=== PATIENT | female | born 1950 ===

== ENCOUNTER 2017-09-10 12:42 | Emergency (ER) | payer BC, MEDICARE ==
[2017-09-10 13:50] VITALS: BP 138/68
--- NOTE | 2017-09-10 13:59 | UC ---
Lower Extremity/Ankle HPI - HPI Summary HPI Summary: Patient fell down one stair and twisted her right ankle has pain and swelling in her lateral ankle - History of Current Complaint Chief Complaint: UCLowerExtremity Stated Complaint: FALL RIGHT ANKLE COMPLAINT Time Seen by Provider: 09/10/17 13:37 Hx Obtained From: Patient ?: No Onset/Duration: Sudden Onset Severity Initially: Mild Severity Currently: Mild Pain Intensity: 2 Pain Scale Used: 0-10 Numeric Aggravating Factor(s): Standing, Ambulation Alleviating Factor(s): Rest, Elevation, Ice, OTC Meds Able to Bear Weight: Yes - with discomfort - Allergies/Home Medications Allergies/Adverse Reactions: Allergies Allergy/AdvReac Type Severity Reaction Status Date / Time No Known Allergies Allergy Verified 09/10/17 13:42 Home Medications: Home Medications Citalopram TAB* [CeleXA TAB*] 20 mg PO DAILY 09/10/17 [History Confirmed ] Donepezil TAB* [Aricept 5 MG TAB*] 10 mg PO DAILY 09/10/17 [History Confirmed ] Ibuprofen TAB* [Advil TAB*] 200 mg PO Q6H PRN 09/10/17 [History Confirmed ] Mirtazapine TAB* [Remeron TAB*] 15 mg PO BEDTIME 09/10/17 [History Confirmed ] PMH/Surg Hx/FS Hx/Imm Hx Previously Healthy: No GI/ History: Gastroesophageal Reflux Neurological History: Dementia Psychological History: Depression, Other - Insomnia Other Psychological History: insomnia - Surgical History Surgery Procedure, Year, and Place: Pacemaker implant. gall bladder - Family History Known Family History: Positive: None - Social History Occupation: Retired Lives: With Family Alcohol Use: Occasionally Substance Use Type: None Smoking Status (MU): Never Smoked Tobacco Review of Systems Constitutional: Negative Skin: Negative Eyes: Negative ENT: Negative Respiratory: Negative Cardiovascular: Negative Gastrointestinal: Negative Genitourinary: Negative Motor: Negative Neurovascular: Negative Musculoskeletal: Arthralgia - Lateral right ankle, Edema - Lateral right ankle Neurological: Negative Psychological: Negative Is Patient Immunocompromised?: No All Other Systems Reviewed And Are Negative: Yes Physical Exam Triage Information Reviewed: Yes Appearance: Well-Appearing, No Pain Distress, Well-Nourished Vital Signs: Initial Vital Signs Temp 97.8 F 09/10/17 13:38 Pulse 82 09/10/17 13:38 Resp 20 09/10/17 13:38 BP 138/68 09/10/17 13:38 Pulse Ox 100 09/10/17 13:38 Vital Signs Reviewed: Yes Eye Exam: Normal Eyes: Positive: Conjunctiva Clear ENT Exam: Normal ENT: Positive: Normal ENT inspection, Hearing grossly normal, Pharynx normal, Uvula midline. Negative: Nasal congestion, Nasal drainage, Trismus, Muffled voice, Hoarse voice, Dental tenderness, Sinus tenderness Dental Exam: Normal Neck exam: Normal Neck: Positive: Supple, Nontender, No Lymphadenopathy Respiratory Exam: Normal Respiratory: Positive: Chest non-tender, No respiratory distress, No accessory muscle use Cardiovascular Exam: Normal Cardiovascular: Positive: RRR, Pulses Normal, Brisk Capillary Refill Musculoskeletal Exam: Other Musculoskeletal: Positive: Strength Limited @ - right ankle, ROM Limited @ - Right ankle, Edema @ - right lateral ankle Neurological Exam: Normal Neurological: Positive: Alert, Muscle Tone Normal Psychological Exam: Normal Skin Exam: Normal Diagnostics - Radiology No standard instances Xray Interpretation: Positive (See Comments) - soft tissue swelling Radiology Interpretation Completed By: ED Physician, Radiologist Lower Extremity Course/Dx - Course Course Of Treatment: Gel splint Bib wrap and crutches rest ice and elevation Tylenol ibuprofen follow up with orthopedic doctor in 4-5 days - Differential Dx/Diagnosis Provider Diagnoses: Right ankle sprain Discharge - Sign-Out/Discharge Documenting (check all that apply): Discharge - Discharge Plan Condition: Stable Disposition: HOME Patient Education Materials: Ankle Sprain (DC), Ankle Stirrup Splint (ED) Referrals: Juanpablo Hartley MD [Medical Doctor] - 4 Days Johnnie Metcalf MD [Primary Care Provider] - Additional Instructions: Please maintain his minimal weightbearing as possible. Rest ice and elevate your leg. Follow up with Dr. Hartley in for 5 days. Tylenol/ibuprofen for pain - Billing Disposition and Condition Condition: STABLE Disposition: HOME
--- NOTE | 2017-09-10 14:11 | RAD ---
INDICATION: Right lateral ankle pain COMPARISON: None TECHNIQUE: AP, lateral, and oblique views were obtained. FINDINGS: There is no acute fracture. The ankle mortise is intact. There is lateral soft tissue swelling. IMPRESSION: LATERAL SOFT TISSUE SWELLING.
== END 2017-09-10 14:50 | disposition home or self-care (01) ==
LOC: UCCORT 12:42
DX: S93.401A Sprain of unspecified ligament of right ankle, initial encounter (principal); W10.9XXA Fall (on) (from) unspecified stairs and steps, initial encounter; Y93.9 Activity, unspecified; Y92.9 Unspecified place or not applicable; F32.9 Major depressive disorder, single episode, unspecified; F03.90 Unspecified dementia, unspecified severity, without behavioral disturbance, psychotic disturbance, mood disturbance, and anxiety
CPT/HCPCS: 99213; G0463